=== PATIENT | male | born 1965 | race African-American/Black ===

== ENCOUNTER 2017-04-05 16:48 | Emergency (ER) | payer MEDICAID ==
[~2017-04-05] VITALS: Ht 188 cm; Wt 123.4 kg
[~2017-04-05 16:48] MED LIST: ACETAMINOPHEN500 M3 ORAL; ANUSOL HC1 SUPP RECTAL; ATARAX25 MG PO; AUGMENTIN 875-1 EAC1 ORAL; IBUPROFEN600 MG ORAL; PREDNISONE20 MG PO; ZANTAC150 MG ORAL
--- NOTE | 2017-04-05 17:15 | Emergency Room Report ---
History of Present Illness General Chief Complaint: Abdominal Pain Source: Patient Present Illness HPI Patient presents with complaints of abdominal discomfort Increased weight gain Patient feels that his umbilical hernia has also increased in size Patient reports being seen at several different facilities and reports no testing was done last seen at [facility] about 7 days ago Denies any chest pain or shortness of breath denies any back or flank pain Denies any dysuria frequency Allergies: Coded Allergies: FISH PRODUCT DERIVATIVES (Verified Allergy, Unknown, 03/17/10) Uncoded Allergies: CHOCOLATE (Allergy, Unknown, 03/17/10) FISH (Allergy, Unknown, 03/17/10) Patient History Past Medical History: see triage record Pertinent Family History: none Reviewed Nursing Documentation: PMH: Agreed, PSxH: Agreed Nursing Documentation-PMH Past Medical History: No Stated History Review of Systems All Other Systems: negative except mentioned in HPI Physical Exam Vital Signs Date Time Temp Pulse Resp B/P Pulse Ox O2 Delivery O2 Flow Rate FiO2 04/05/17 16:59 98.2 87 15 133/88 95 Room Air Sp02 EP Interpretation: reviewed, normal General Appearance: well appearing, no apparent distress Head: normocephalic, atraumatic Eyes: bilateral eye EOMI, bilateral eye PERRL ENT: hearing grossly normal, normal pharynx, TMs + canals normal, uvula midline Neck: full range of motion, supple, no meningismus, no bony tend Respiratory: lungs clear, normal breath sounds, no rhonchi, no respiratory distress, no retraction, no accessory muscle use Cardiovascular #1: normal peripheral pulses, regular rate, rhythm, no edema, no gallop, no JVD, no murmur Gastrointestinal: normal bowel sounds, no organomegaly, no guarding, no pulsatile mass, no rebound, distended - Patient has a mildly distended abdomen on palpation, umbilical hernia is easily reducible Genitourinary: no CVA tenderness Musculoskeletal: normal inspection Neurologic: oriented x3, responsive, applications engineer III-XII nml as tested, motor strength/ tone normal, sensory intact Psychiatric: mood/affect normal Skin: normal color, no rash, warm/dry, palpation normal Lymphatic: normal inspection, no adenopathy Medical Decision Making Diagnostic Impression: Primary Impression: Abdominal pain Additional Impression: Umbilical hernia ER Course With the history exam and presentation, multiple differentials considered, including but not limited to appendicitis, gastritis, cholecystitis, diverticulitis Patient's blood work and imaging does not reveal any obvious acute pathology CT imaging shows several nonspecific pathology that require close observation and followup Patient has signs of umbilical hernia which is easily reducible Patient requires close outpatient followup Labs Test 04/05/17 17:38 04/05/17 19:25 White Blood Count 5.4 K/UL (4.8-10.8) Red Blood Count 5.05 M/UL (4.70-6.10) Hemoglobin 15.7 G/DL (14.2-18.0) Hematocrit 43.5 % (42.0-52.0) Mean Corpuscular Volume 86 FL (80-99) Mean Corpuscular Hemoglobin 31.0 PG (27.0-31.0) Mean Corpuscular Hemoglobin Concent 36.0 G/DL (32.0-36.0) Red Cell Distribution Width 12.4 % (11.6-14.8) Platelet Count 220 K/UL (150-450) Mean Platelet Volume 8.4 FL (6.5-10.1) Neutrophils (%) (Auto) 52.6 % (45.0-75.0) Lymphocytes (%) (Auto) 33.2 % (20.0-45.0) Monocytes (%) (Auto) 11.1 % (1.0-10.0) Eosinophils (%) (Auto) 1.1 % (0.0-3.0) Basophils (%) (Auto) 2.1 % (0.0-2.0) Prothrombin Time 10.5 SEC (9.30-11.50) Prothromb Time International Ratio 1.0 (0.9-1.1) Activated Partial Thromboplast Time 27 SEC (23-33) Sodium Level 141 mEQ/L (135-145) Potassium Level 3.9 mEQ/L (3.4-4.9) Chloride Level 104 mEQ/L (98-107) Carbon Dioxide Level 24 mEQ/L (20-30) Anion Gap 13 (5-15) Blood Urea Nitrogen 11 mg/dL (7-23) Creatinine 1.3 mg/dL (0.7-1.2) Estimat Glomerular Filtration Rate > 60 mL/min (>60) Glucose Level 100 mg/dL (74-106) Calcium Level 9.0 mg/dL (8.6-10.2) Total Bilirubin 0.4 mg/dL (0.0-1.2) Aspartate Amino Transf (AST/SGOT) 26 U/L (5-40) Alanine Aminotransferase (ALT/SGPT) 29 U/L (3-41) Alkaline Phosphatase 59 U/L (40-129) Total Protein 7.2 g/dL (6.6-8.7) Albumin 4.0 g/dL (3.5-5.2) Globulin 3.2 g/dL Albumin/Globulin Ratio 1.2 (1.0-2.7) Lipase 31 U/L (< 60) Urine Color Yellow Urine Appearance Clear Urine pH 6 (4.5-8.0) Urine Specific [place] 1.030 (1.005-1.035) Urine Protein 2+ (NEGATIVE) Urine Glucose (UA) Negative (NEGATIVE) Urine Ketones Negative (NEGATIVE) Urine Occult Blood 4+ (NEGATIVE) Urine Nitrite Negative (NEGATIVE) Urine Bilirubin Negative (NEGATIVE) Urine Urobilinogen 1 MG/DL (0.0-1.0) Urine Leukocyte Esterase 3+ (NEGATIVE) Urine RBC 5-10 /HPF (0 - 0) Urine WBC 2-4 /HPF (0 - 0) Urine Squamous Epithelial Cells None /LPF (NONE/OCC) Urine Bacteria Few /HPF (NONE) CT/MRI/US Diagnostic Results CT/MRI/US Diagnostic Results : Impression CT abdomen pelvisImpression: Small umbilical hernia, containing the additional of a loop of small bowel. No evidence of obstruction or strangulation No acute process otherwise Equivocal minimal diverticulosis Subcentimeter low-attenuation lesions in segment TORI of the liver which are too small to characterize, most likely benign simple cysts or bile hamartomas. No further followup necessary Incidental findings as noted, including mild degenerative spondylosis changes, minimal right basilar atelectasis or scarring, small fat-containing left inguinal hernia, small sliding-type hiatal hernia Last Vital Signs Date Time Temp Pulse Resp B/P Pulse Ox O2 Delivery O2 Flow Rate FiO2 04/05/17 16:59 98.2 87 15 133/88 95 Room Air Status: improved Disposition: HOME, SELF-CARE Condition: Improved Scripts Docusate Sodium* (COLACE*) 100 Mg Capsule 100 MG ORAL THREE TIMES A DAY, #30 CAP Prov: FRANCINE WINSLOW D.O. 04/05/17 Additional Instructions: Patient is provided with the discharge instructions notified to follow up with primary doctor in the next 2-3 days otherwise return to the er with any worsening symptoms. Please note that this report is being documented using [employer] technology. This can lead to erroneous entry secondary to incorrect interpretation by the dictating instrument. FRANCINE WINSLOW D.O. April 05, 2017 17:15
[2017-04-05 17:30] VITALS: BP 173/98
[2017-04-05 18:06] LABS: ALANINE AMINOTRANSFERASE 29 U/L (3-41); ALBUMIN/GLOBULIN RATIO 1.2 (1.0-2.7); ANION GAP 13 (5-15); ASPARTATE AMINO TRANSFERASE 26 U/L (5-40); CARBON DIOXIDE 24 mEQ/L (20-30); CHLORIDE 104 mEQ/L (98-107); CREATININE 1.3 mg/dL (0.7-1.2); GLOMERULAR FILTRATION RATE > 60 mL/min (>60); HEMOLYSIS 32; LIPASE 31 U/L (< 60); POTASSIUM 3.9 mEQ/L (3.4-4.9); SODIUM 141 mEQ/L (135-145); TOTAL PROTEIN 7.2 g/dL (6.6-8.7)
[2017-04-05 18:11] LABS: BASOPHILS % (AUTO) 2.1 % (0.0-2.0); EOSINOPHILS % (AUTO) 1.1 % (0.0-3.0); LYMPHOCYTES % (AUTO) 33.2 % (20.0-45.0); MEAN CORPUSCULAR VOLUME 86 FL (80-99); MEAN PLATELET VOLUME 8.4 FL (6.5-10.1); MONOCYTES % (AUTO) 11.1 % (1.0-10.0); NEUTROPHILS % (AUTO) 52.6 % (45.0-75.0); PLATELET COUNT 220 K/UL (150-450); PROTHROMBIN TIME 10.5 SEC (9.30-11.50); RED BLOOD COUNT 5.05 M/UL (4.70-6.10); RED CELL DISTRIBUTION WIDTH 12.4 % (11.6-14.8); WHITE BLOOD COUNT 5.4 K/UL (4.8-10.8)
[2017-04-05 18:30] VITALS: BP 150/104
[2017-04-05 19:30] VITALS: BP 162/102
[2017-04-05 19:43] LABS: APPEARANCE,URINE CLEAR; KETONES,URINE NEGATIVE (NEGATIVE); NITRITE,URINE NEGATIVE (NEGATIVE); PH,URINE 6 (4.5-8.0)
[2017-04-05 19:45] LABS: LEUKOCYTE ESTERASE ,URINE 3+ (NEGATIVE); PROTEIN,URINE 2+ (NEGATIVE); UROBILINOGEN,URINE 1 MG/DL (0.0-1.0)
[2017-04-05 19:57] LABS: BACTERIA,URINE FEW /HPF
[2017-04-05] MEDS ORDERED: COLACE100 MG ORAL (20:02)
[2017-04-05 20:06] VITALS: BP 162/102
--- NOTE | 2017-04-06 09:09 | Diagnostic Imaging Report ---
Clinical Indication: Abdominal pain Technique: Patient given oral contrast. IV administration nonionic contrast. Venous phase spiral acquisition obtained through the abdomen and pelvis. Multiplanar reconstructions were generated. Total dose length product 1084 mGycm. CTDIvol(s) 18 mGy. Dose reduction achieved using automated exposure control Comparison: None Findings: The appendix is normal. There are equivocal small colonic diverticula distally. No evidence of diverticulitis. No small bowel distention. No small bowel wall thickening. There is questionably a small sliding-type hiatal hernia. The stomach, duodenum are unremarkable. No free or loculated intraperitoneal air or fluid. There is a small umbilical hernia, which contains mostly fat, but the edge of the small bowel protrudes slightly into it. This does not appear to result in the obstruction or strangulation, however. There is a small fat-containing left inguinal hernia. Contrast opacification is suboptimal. The liver demonstrates a subcentimeter low-attenuation lesions in segment TORI which are too small to characterize, most likely represent benign simple cysts or bile hamartomas. The gallbladder, bile ducts, pancreas, spleen, adrenals, kidneys are unremarkable. No mesenteric or retroperitoneal mass or adenopathy. No pelvic mass or adenopathy. The included lung bases are clear except for minimal atelectasis or scarring on the right. The bones demonstrate mild degenerative spondylosis changes. Impression: Small umbilical hernia, containing the additional of a loop of small bowel. No evidence of obstruction or strangulation No acute process otherwise Equivocal minimal diverticulosis Subcentimeter low-attenuation lesions in segment TORI of the liver which are too small to characterize, most likely benign simple cysts or bile hamartomas. No further followup necessary Incidental findings as noted, including mild degenerative spondylosis changes, minimal right basilar atelectasis or scarring, small fat-containing left inguinal hernia, small sliding-type hiatal hernia This agrees with the preliminary interpretation provided overnight by Dr. Aldana The CT scanner at [facility] is accredited by the [employer] and the scans are performed using protocols designed to limit radiation exposure to as low as reasonably achievable to attain images of sufficient resolution adequate for diagnostic evaluation.
== END 2017-04-05 20:08 | disposition home or self-care (01) ==
LOC: EMR 17:28
DX: R10.9 Unspecified abdominal pain (principal); K42.9 Umbilical hernia without obstruction or gangrene; Z91.013 Allergy to seafood; Z91.018 Allergy to other foods; K40.90 Unilateral inguinal hernia, without obstruction or gangrene, not specified as recurrent; K44.9 Diaphragmatic hernia without obstruction or gangrene; J98.11 Atelectasis; K57.90 Diverticulosis of intestine, part unspecified, without perforation or abscess without bleeding
CPT/HCPCS: 36415; 74177; 80053; 81003; 83690; 85025; 85610; 85730; 99284; Q9967

== ENCOUNTER 2017-08-14 10:52 | Emergency (ER) | payer MEDICAID ==
[~2017-08-14] VITALS: Ht 188 cm; Wt 117.9 kg
[~2017-08-14 10:52] MED LIST changes: +COLACE100 MG ORAL
[2017-08-14 11:10] VITALS: BP 161/114
[2017-08-14] MEDS ORDERED: PREDNISONE20 MG ORAL (11:20)
[2017-08-14] MEDS ORDERED: ATARAX25 MG PO (11:20)
[2017-08-14 11:45] VITALS: BP 161/114
--- NOTE | 2017-08-14 13:21 | Emergency Room Report ---
History of Present Illness General Chief Complaint: Allergic Reaction Source: Patient Present Illness HPI Patient's 52 male presented after increased skin redness. Patient gradual onset of symptoms. Patient had prior history of chronic urticaria for which he takes Atarax. Patient had no difficulty breathing. He reports having some redness diffusely throughout his body. He reports having prior history of food allergies. He denies vomiting or abdominal pain. He denies lip or tongue swelling. He reports having prior history of umbilical hernia Allergies: Coded Allergies: FISH PRODUCT DERIVATIVES (Verified Allergy, Unknown, 03/17/10) Uncoded Allergies: CHOCOLATE (Allergy, Unknown, 03/17/10) FISH (Allergy, Unknown, 03/17/10) Patient History Past Medical History: see triage record Reviewed Nursing Documentation: PMH: Agreed, PSxH: Agreed Nursing Documentation-PMH Past Medical History: No History, Except For Hx Hypertension: No - UNK CHRONIC ALLERGY Review of Systems All Other Systems: negative except mentioned in HPI Physical Exam Vital Signs Date Time Temp Pulse Resp B/P (MAP) Pulse Ox O2 Delivery O2 Flow Rate FiO2 08/14/17 10:55 98.1 84 20 185/120 96 Room Air General Appearance: well appearing, no apparent distress, alert, GCS 15, non- toxic Head: normocephalic, atraumatic ENT: hearing grossly normal, normal voice Neck: full range of motion, supple Respiratory: no respiratory distress, speaking full sentences Cardiovascular #1: normal inspection, regular rate, rhythm Gastrointestinal: normal inspection, normal bowel sounds, non tender, soft, other - ventral hernia, reducible Musculoskeletal: no calf tenderness Neurologic: normal gait Psychiatric: mood/affect normal Skin: no rash Medical Decision Making Diagnostic Impression: Primary Impression: Chronic urticaria ER Course Patient presented for skin rash. Differential diagnosis included was not limited to Hoff-Hunter syndrome, urticaria, erythema multiforme, contact dermatitis. Patient's benign exam and does not appear to require any further imaging or laboratory testing at this time The patient was given oral steroids. He is given prescription for Atarax.The patient is advised to follow up with primary care doctor in 1-2 days. Patient is advised to return if any worsening condition or if any changes in status that are concerning. Last Vital Signs Date Time Temp Pulse Resp B/P (MAP) Pulse Ox O2 Delivery O2 Flow Rate FiO2 08/14/17 11:45 97.2 83 19 161/114 98 Room Air Status: improved Disposition: HOME, SELF-CARE Condition: Improved Scripts Prednisone* (PREDNISONE*) 20 Mg Tablet 40 MG ORAL DAILY, #10 TAB Prov: Lanre Umanzor 08/14/17 Hydroxyzine HCl (Hydroxyzine HCl) 25 Mg Tab 50 MG PO QID, #30 TAB Take one tablet by mouth four times a day as needed for itching Prov: Lanre Umanzor 08/14/17 Referrals: NOT [facility]/,REFERRING (PCP) Patient Instructions: Allergies Lanre Umanzor Aug 14, 2017 13:21
== END 2017-08-14 11:45 | disposition home or self-care (01) ==
LOC: EMR 11:31
DX: L50.8 Other urticaria (principal); Z91.018 Allergy to other foods
CPT/HCPCS: 99283

== ENCOUNTER 2017-10-24 17:04 | Emergency (ER) | payer MEDICAID ==
[~2017-10-24] VITALS: Ht 185.4 cm; Wt 124.7 kg
[~2017-10-24 17:04] MED LIST changes: +PREDNISONE20 MG ORAL
[2017-10-24] MEDS ORDERED: NORCO 5-325 TA1 EACH ORAL (17:50)
--- NOTE | 2017-10-24 17:58 | Emergency Room Report ---
History of Present Illness General Chief Complaint: General Complaint Source: Patient, Medical Record Present Illness HPI 52-year-old male, history of an umbilical hernia for many years, came in for pain to his hernia. Patient states that onThursday, the hernia got very big and painful, however was able to be reduced. Patient states that he has had intermittent pain to the area, denies any fever chills nausea vomiting, his last bowel movement was today 3 times States that he once sawsurgeon many years ago Allergies: Coded Allergies: FISH PRODUCT DERIVATIVES (Verified Allergy, Unknown, 03/17/10) Uncoded Allergies: CHOCOLATE (Allergy, Unknown, 03/17/10) FISH (Allergy, Unknown, 03/17/10) Patient History Past Medical History: see triage record Past Surgical History: none Pertinent Family History: none Reviewed Nursing Documentation: PMH: Agreed, PSxH: Agreed Nursing Documentation-PMH Past Medical History: No History, Except For Hx Hypertension: No - UNK CHRONIC ALLERGY Review of Systems All Other Systems: negative except mentioned in HPI Physical Exam Vital Signs Date Time Temp Pulse Resp B/P (MAP) Pulse Ox O2 Delivery O2 Flow Rate FiO2 10/24/17 17:16 98.1 75 18 166/105 97 Room Air Sp02 EP Interpretation: reviewed, normal General Appearance: alert, GCS 15, non-toxic, mild distress Head: normocephalic, atraumatic Eyes: bilateral eye normal inspection, bilateral eye PERRL, bilateral eye EOMI ENT: normal ENT inspection, normal pharynx, normal voice, moist mucus membranes Neck: normal inspection, full range of motion, supple Respiratory: normal inspection, lungs clear, normal breath sounds, no respiratory distress, no retraction, no wheezing, speaking full sentences, chest symmetrical Cardiovascular #1: normal inspection, regular rate, rhythm, no edema, normal capillary refill Cardiovascular #2: 2+ radial (R), 2+ radial (L) Gastrointestinal: other - Abdomen is very soft, soft and reducible hernia, not strangulated, normal bowel sounds Genitourinary: no CVA tenderness Musculoskeletal: normal inspection, back normal, normal range of motion, non- tender Neurologic: normal inspection, alert, oriented x3, responsive, motor strength/ tone normal, sensory intact, normal gait, speech normal Psychiatric: normal inspection, judgement/insight normal, memory normal Skin: normal inspection, normal color, no rash, warm/dry, well hydrated, normal turgor Medical Decision Making Diagnostic Impression: Primary Impression: Umbilical hernia ER Course 52-year-old male with umbilical hernia of for many years, with umbilical hernia pain DDX: At this time patient has umbilical hernia which is completely reducible, patient is nontoxic appearing, is passing gas and bowel movement normally, not nauseous or vomiting Plan: Pain control ER course: Patient has remained stable during ED stay. Patient was very angry, stating that he wants surgery done today, I politely informed the patient that surgery is not indicated emergently at this time as hernias not strangulated, and he is not having any obstructive symptoms. Furthermore her knee is completely reducible at this time Disposition: Patient is to be discharged to home. Prescriptions given are norco Patient is instructed to follow up with outpatient surgery, , this Tuesday at 11 AM. His phone number and address was given to the patient Strict return precautions discussed with patient such as fever, chills, worsening/severe pain, unable to reduce hernia, not able to pass any gas or stool Please note that this Emergency Department Report was dictated using [employer] basic technology software, occasionally this can lead to erroneous entry secondary to interpretation by the dictation equipment Last Vital Signs Date Time Temp Pulse Resp B/P (MAP) Pulse Ox O2 Delivery O2 Flow Rate FiO2 10/24/17 17:16 98.1 75 18 166/105 97 Room Air Disposition: HOME, SELF-CARE Condition: Stable Scripts Hydrocodone Bit/Acetaminophen 5-325* (NORCO 5-325*) 1 Each Tablet 1 TAB ORAL Q6H Y for For Pain, #10 TAB 0 Refills Prov: Gordy Garay M.D. 10/24/17 Referrals: [facility] (PCP) Patient Instructions: Hernia, Adult, [id number] Additional Instructions: Please followup with the surgeon outpatient in one week You can follow up with Dr Copeland Tuesday at 11am [phone] [facility] [address] [place] [address] Please return to the emergency room if you are unable to reduce hernia, intractable nausea vomiting, absence of any bowel movement or passing of gas Gordy Garay M.D. Oct 24, 2017 17:57
[2017-10-24] MEDS ORDERED: Norco 10mg/325mg tab ORAL ONE (18:00)
[2017-10-24 18:06] VITALS: BP 166/105
== END 2017-10-24 18:06 | disposition home or self-care (01) ==
LOC: EMR 17:45
DX: K42.9 Umbilical hernia without obstruction or gangrene (principal)
CPT/HCPCS: 99283

== ENCOUNTER 2018-05-07 19:38 | Emergency (ER) | payer MEDICAID ==
[~2018-05-07] VITALS: Ht 185.4 cm; Wt 122.5 kg
[~2018-05-07 19:38] MED LIST changes: +NORCO 5-325 TA1 EACH ORAL
[2018-05-07] MEDS ORDERED: HydrOXYzine tab 25 MG TAB ORAL ONE (20:00)
--- NOTE | 2018-05-07 20:06 | Emergency Room Report ---
History of Present Illness General Chief Complaint: Allergic Reaction Source: Patient Present Illness HPI 53-year-old male with a history of an umbilical hernia as well as chronic urticaria presents with hives like reaction on his trunk, he reports he felt some mild sensation shortness of breath earlier and he thought it was secondary to having allergic reaction. He no longer feels short of breath but he does still have the hives he reports they're itchy, and he gets them all the time. He reports he's been tested for food and medication allergies, and he is still undergoing further testing. He has certain foods that trigger it, but he reports there is no triggers this time and the hives came up mainly because he' s run out of his hydroxyzine a day and a half ago. He is not on steroids, and only takes hydroxyzine regularly. He has not tried any medications for his symptoms currently, and he is not complaining of shortness of breath, abdominal pain, syncope or near syncope. Allergies: Coded Allergies: FISH PRODUCT DERIVATIVES (Verified Allergy, Unknown, 03/17/10) Uncoded Allergies: CHOCOLATE (Allergy, Unknown, 03/17/10) FISH (Allergy, Unknown, 03/17/10) Patient History Past Medical History: see triage record Reviewed Nursing Documentation: PMH: Agreed; PSxH: Agreed Nursing Documentation-PMH Past Medical History: No History, Except For Hx Hypertension: Yes Review of Systems All Other Systems: negative except mentioned in HPI Physical Exam Vital Signs Date Time Temp Pulse Resp B/P (MAP) Pulse Ox O2 Delivery O2 Flow Rate FiO2 05/07/18 19:45 97.7 80 18 161/100 94 Room Air 97.7 Sp02 EP Interpretation: reviewed, normal General Appearance: no apparent distress, alert, non-toxic Head: normocephalic Eyes: bilateral eye normal inspection, bilateral eye PERRL, bilateral eye EOMI ENT: normal ENT inspection, hearing grossly normal, normal pharynx, no angioedema, normal voice, moist mucus membranes Neck: normal inspection, full range of motion, supple, supple/symm/no masses Respiratory: normal inspection, chest non-tender, lungs clear, normal breath sounds, no respiratory distress, no wheezing, speaking full sentences, chest symmetrical, palpation of chest normal Cardiovascular #1: normal peripheral pulses, regular rate, rhythm Cardiovascular #2: 2+ radial (R), 2+ radial (L) Gastrointestinal: normal inspection, non tender, soft, no mass, no guarding, no rebound Rectal: deferred Genitourinary: normal inspection, no CVA tenderness Musculoskeletal: back normal, gait/station normal, normal range of motion, non- tender, no calf tenderness Neurologic: alert, responsive, environmental services technician III-XII nml as tested, motor strength/tone normal, sensory intact, speech normal Psychiatric: judgement/insight normal, memory normal, mood/affect normal, no suicidal/homicidal ideation Skin: normal color, warm/dry, normal turgor, rash - A few areas of hives like reaction roughly 3 cm diameter over and bilateral flank, total less than 10 in number, spares palms, spares soles, no oral involvement. Lymphatic: no adenopathy Medical Decision Making Diagnostic Impression: Primary Impression: Urticaria ER Course Patient will be given steroids here and a few days of first course, as well as an Atarax refill. He has a primary care doctor on [facility] whom he sees and the gets allergy testing with, will recommend follow-up with that doctor for further evaluation and further refills of his medications. Last Vital Signs Date Time Temp Pulse Resp B/P (MAP) Pulse Ox O2 Delivery O2 Flow Rate FiO2 05/07/18 19:45 97.7 80 18 161/100 94 Room Air 97.7 Disposition: HOME, SELF-CARE Condition: Stable Referrals: [facility] (PCP) JANKI DÍAZ M.D May 07, 2018 20:06
[2018-05-07] MEDS ORDERED: ATARAX25 MG ORAL (20:08)
[2018-05-07] MEDS ORDERED: PREDNISONE20 MG ORAL (20:08)
[2018-05-07 20:38] VITALS: BP 161/100
== END 2018-05-07 20:40 | disposition home or self-care (01) ==
LOC: EMR 19:58
DX: L50.9 Urticaria, unspecified (principal); I10 Essential (primary) hypertension; Z91.018 Allergy to other foods
CPT/HCPCS: 99283; J7512

== ENCOUNTER 2020-05-18 13:35 | Emergency (ER) | payer MEDICAID ==
[~2020-05-18] VITALS: Ht 188 cm; Wt 122.5 kg
[~2020-05-18 13:35] MED LIST changes: +ATARAX25 MG ORAL
[2020-05-18] MEDS ORDERED: Omnipaque-300 100ml vial INJ PRN (14:00)
[2020-05-18] MEDS ORDERED: Morphine Sulfate 2mg/ml Inj(IV/IM USE ONLY) IVP ONE (14:00)
[2020-05-18 14:16] LABS: BASOPHILS % (AUTO) 0.6 % (0.0-2.0); EOSINOPHILS % (AUTO) 4.4 % (0.0-3.0); HEMATOCRIT 50.5 % (42.0-52.0); HEMOGLOBIN 16.5 G/DL (14.2-18.0); LYMPHOCYTES % (AUTO) 33.7 % (20.0-45.0); MEAN CORPUSCULAR VOLUME 92 FL (80-99); MONOCYTES % (AUTO) 10.7 % (1.0-10.0); NEUTROPHILS % (AUTO) 50.7 % (45.0-75.0); PLATELET COUNT 268 K/UL (150-450); RED BLOOD COUNT 5.52 M/UL (4.70-6.10); RED CELL DISTRIBUTION WIDTH 12.4 % (11.6-14.8)
[2020-05-18 14:21] VITALS: BP 147/71
[2020-05-18 14:29] LABS: ANION GAP 10 mmol/L (5-15); BLOOD UREA NITROGEN 14 mg/dL (7-18); CALCIUM 8.6 MG/DL (8.5-10.1); CARBON DIOXIDE 27 MMOL/L (21-32); CHLORIDE 104 MMOL/L (98-107); CREATININE 1.5 MG/DL (0.55-1.30); POTASSIUM 3.3 MMOL/L (3.5-5.1); SODIUM 141 MMOL/L (136-145)
[2020-05-18 14:33] LABS: ALANINE AMINOTRANSFERASE 27 U/L (12-78); ALBUMIN 3.6 G/DL (3.4-5.0); ALBUMIN/GLOBULIN RATIO 1.1 (1.0-2.7); ALKALINE PHOSPHATASE 81 U/L (46-116); ASPARTATE AMINO TRANSFERASE 22 U/L (15-37); BILIRUBIN,TOTAL 0.4 MG/DL (0.2-1.0)
[2020-05-18 15:31] LABS: APPEARANCE,URINE CLEAR; BILIRUBIN, URINE NEGATIVE (NEGATIVE); GLUCOSE, URINE (UA) NEGATIVE (NEGATIVE); KETONES,URINE 1+ (NEGATIVE); LEUKOCYTE ESTERASE ,URINE 1+ (NEGATIVE); NITRITE,URINE NEGATIVE (NEGATIVE); PH,URINE 5 (4.5-8.0); PROTEIN,URINE NEGATIVE (NEGATIVE); UROBILINOGEN,URINE 4 MG/DL (0.0-1.0)
[2020-05-18 15:40] LABS: COLOR,URINE YELLOW
--- NOTE | 2020-05-18 16:01 | Diagnostic Imaging Report ---
EXAM: CT Abdomen and Pelvis Without Intravenous Contrast CLINICAL HISTORY: PAIN TECHNIQUE: Axial computed tomography images of the abdomen and pelvis without intravenous contrast. CTDI is 14.7 mGy and DLP is 799.8 mGy-cm. One or more of the following dose reduction techniques were used: automated exposure control, adjustment of the mA and/or kV according to patient size, use of iterative reconstruction technique. COMPARISON: CT abdomen/pelvis on 04/05/2017 FINDINGS: Lung bases: Mild bibasilar atelectasis. Punctate calcified granuloma in the right middle lobe. Heart: Mild cardiomegaly. Mediastinum: Small hiatal hernia. ABDOMEN: Liver: Small hypodensities in the liver are too small to definitively characterize. Gallbladder and bile ducts: Contracted gallbladder. No calcified stones. No ductal dilation. Pancreas: Unremarkable. No ductal dilation. Spleen: Splenule. Adrenals: Unremarkable. No mass. Kidneys and ureters: Unremarkable. No obstructing stones. No hydronephrosis. Stomach and bowel: Moderate ventral hernia containing small amount of fluid and bowel. No definite bowel obstruction. Mild prominence of the wall of the herniated small bowel is nonspecific. Evaluation of the stomach is limited by underdistention. Diverticulosis without evidence of diverticulitis. PELVIS: Appendix: Normal appendix. Bladder: Bladder wall thickening may be at least in part accentuated by underdistention. Please correlate with urinalysis to evaluate for cystitis. No stones. Reproductive: Unremarkable as visualized. ABDOMEN and PELVIS: Intraperitoneal space: Unremarkable. No free air. No significant fluid collection. Bones/joints: Mild degenerative changes of the spine. No acute fracture. No dislocation. Soft tissues: Fat-containing bilateral inguinal hernias. Vasculature: Mild atherosclerotic changes of the vasculature. No aortic aneurysm. Lymph nodes: Unremarkable. No enlarged lymph nodes. IMPRESSION: 1. Moderate ventral hernia containing small amount of fluid and bowel. No definite bowel obstruction. Mild prominence of the wall of the herniated small bowel is nonspecific. Strangulation changes or enteritis not excluded. 2. Bladder wall thickening may be at least in part accentuated by underdistention. Please correlate with urinalysis to evaluate for cystitis.
--- NOTE | 2020-05-18 16:09 | Emergency Room Report ---
History of Present Illness General Chief Complaint: Abdominal Pain Source: Patient (Trino Luna) Present Illness HPI 55-year-old male with history of ventral hernia repair x3 years here complaining of worsening abdominal pain at the site of ventral hernia repair x3 days. Patient reports that at work he often lifts heavy objects. Denies any pain radiation to the scrotum. Rates the pain 5 out of 10 without radiation. Denies tingling or numbness. Denies headache and dizziness. Denies chest pain shortness of breath, diffuse abdominal pain. Complains of nausea however denies any vomiting at this time. Denies all drug use. Marijuana use. Reports that he occasionally drinks alcohol. Denies tobacco smoke. Denies urinary symptoms at this time. Has not taken medication for symptom relief. 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 (Trino Luna) Patient History Past Medical History: see triage record Past Surgical History: none Pertinent Family History: none Immunizations: UTD Reviewed Nursing Documentation: PMH: Agreed; PSxH: Agreed (Trino Luna) Nursing Documentation-PMH Past Medical History: No History, Except For Hx Hypertension: Yes (Trino Luna) Review of Systems All Other Systems: negative except mentioned in HPI (Trino Luna) Physical Exam Vital Signs Date Time Temp Pulse Resp B/P (MAP) Pulse Ox O2 Delivery O2 Flow Rate FiO2 05/18/20 13:38 99.1 79 17 147/71 (96) 97 Room Air Sp02 EP Interpretation: reviewed, normal General Appearance: no apparent distress, alert, GCS 15, non-toxic Head: normocephalic, atraumatic Eyes: bilateral eye normal inspection, bilateral eye PERRL ENT: hearing grossly normal, normal pharynx, no angioedema, normal voice Neck: full range of motion, supple, supple/symm/no masses Respiratory: chest non-tender, lungs clear, normal breath sounds, no rhonchi, no respiratory distress, no retraction, no wheezing, speaking full sentences Cardiovascular #1: regular rate, rhythm, no edema, no murmur Gastrointestinal: non tender, soft, no mass, no organomegaly, no peritonitis, no bruit, non-distended, no guarding, no pulsatile mass, no rebound Rectal: deferred Musculoskeletal: back normal Neurologic: alert, motor strength/tone normal, oriented x3, sensory intact, responsive, speech normal Psychiatric: judgement/insight normal, memory normal, mood/affect normal, no suicidal/homicidal ideation Skin: no rash Lymphatic: no adenopathy (Trino Luna) Medical Decision Making PA Attestation All diagnoses and treatment plans were reviewed and discussed with my supervising physician Dr. Ham (Trino Luna) Diagnostic Impression: Primary Impression: Ventral hernia Additional Impressions: Cystitis Cocaine abuse ER Course 55-year-old male with history of ventral hernia repair x3 years here complaining of worsening abdominal pain at the site of ventral hernia repair x3 days. Patient reports that at work he often lifts heavy objects. Denies any pain radiation to the scrotum. Rates the pain 5 out of 10 without radiation. Denies tingling or numbness. Denies headache and dizziness. Denies chest pain shortness of breath, diffuse abdominal pain. Complains of nausea however denies any vomiting at this time. Denies all drug use. Marijuana use. Reports that he occasionally drinks alcohol. Denies tobacco smoke. Denies urinary symptoms at this time. Has not taken medication for symptom relief. Ddx considered but are not limited to: appendicitis, cholecystitis, gastritis, gastroenteritis, UTI, pyelonephritis, SBO, diverticulitis, influenza with GI manifestation, AR, strangulated hernia, obstructive hernia, nonobstructive hernia Vital signs: are WNL, pt. is afebrile H&PE are most consistent with: Nonobstructive None strangulated ventral hernia, cocaine abuse, cystitis ORDERS: abdominal CT, abdominal pain set, EKG, Zofran, Tylenol, Keflex ED INTERVENTIONS: Morphine, NS bolus, Zofran, Pepcid DISCHARGE: At this time pt. is stable for d/c to home. Will provide printed patient care instructions, and any necessary prescriptions. Care plan and follow up instructions have been discussed with the patient prior to discharge. Patient take medication as directed, follow primary care provider for referral to general surgeon. At this time due to no strangulation nonobstructive nature of the hernia needed no surgical patient to avoid lifting heavy objects. If worsening symptoms return to the emergency room. Patient was also advised not to use cocaine. (Trino Luna) EKG Diagnostic Results Rate: normal Rhythm: NSR ST Segments: no acute changes Other Impression No acute ST changes (Trino Luna) Rhythm Strip Diag. Results EP Interpretation: yes Rhythm: NSR, no PVC's, no ectopy (Sarmad Ham MD) CT/MRI/US Diagnostic Results CT/MRI/US Diagnostic Results : Imaging Test Ordered: CT abdomen pelvis no contrast Impression FINDINGS: Lung bases: Mild bibasilar atelectasis. Punctate calcified granuloma in the right middle lobe. Heart: Mild cardiomegaly. Mediastinum: Small hiatal hernia. ABDOMEN: Liver: Small hypodensities in the liver are too small to definitively characterize. Gallbladder and bile ducts: Contracted gallbladder. No calcified stones. No ductal dilation. Pancreas: Unremarkable. No ductal dilation. Spleen: Splenule. Adrenals: Unremarkable. No mass. Kidneys and ureters: Unremarkable. No obstructing stones. No hydronephrosis. Stomach and bowel: Moderate ventral hernia containing small amount of fluid and bowel. No definite bowel obstruction. Mild prominence of the wall of the herniated small bowel is nonspecific. Evaluation of the stomach is limited by underdistention. Diverticulosis without evidence of diverticulitis. PELVIS: Appendix: Normal appendix. Bladder: Bladder wall thickening may be at least in part accentuated by underdistention. Please correlate with urinalysis to evaluate for cystitis. No stones. Reproductive: Unremarkable as visualized. ABDOMEN and PELVIS: Intraperitoneal space: Unremarkable. No free air. No significant fluid collection. Bones/joints: Mild degenerative changes of the spine. No acute fracture. No dislocation. Soft tissues: Fat-containing bilateral inguinal hernias. Vasculature: Mild atherosclerotic changes of the vasculature. No aortic aneurysm. Lymph nodes: Unremarkable. No enlarged lymph nodes. IMPRESSION: 1. Moderate ventral hernia containing small amount of fluid and bowel. No definite bowel obstruction. Mild prominence of the wall of the herniated small bowel is nonspecific. Strangulation changes or enteritis not excluded. 2. Bladder wall thickening may be at least in part accentuated by underdistention. Please correlate with urinalysis to evaluate for cystitis. (Trino Luna) Last Vital Signs Date Time Temp Pulse Resp B/P (MAP) Pulse Ox O2 Delivery O2 Flow Rate FiO2 05/18/20 14:21 99.1 17 147/71 97 Room Air 05/18/20 14:21 79 (Trino Luna) Disposition: HOME, SELF-CARE Condition: Stable Scripts Cephalexin* (KEFLEX*) 500 Mg Capsule 500 MG ORAL EVERY 12 HOURS for 7 Days, #14 CAP 0 Refills Prov: Trino Luna 05/18/20 Acetaminophen* (TYLENOL EXTRA STRENGTH*) 500 Mg Tablet 500 MG ORAL Q8H PRN for Prn Headache/Temp > 101, #30 TAB 0 Refills Prov: Trino Luna 05/18/20 Ondansetron (Zofran) 4 Mg Tablet 4 MG ORAL Q6H PRN for Nausea & Vomiting, #14 TAB Prov: Trino Luna 05/18/20 Referrals: [facility],REFERRING (PCP) Patient Instructions: Abdominal Pain, Adult, Urinary Tract Infection, Ventral Hernia Additional Instructions: Take medication as directed, follow-up with your primary care provider for referral to general surgeon, if worsening symptoms return to the emergency room. Avoid using cocaine. Avoid lifting heavy objects. Trino Luna May 18, 2020 16:09 Sarmad Ham MD May 20, 2020 20:29
[2020-05-18] MEDS ORDERED: TYLENOL EXTRA500 MG ORAL (16:11)
[2020-05-18] MEDS ORDERED: ZOFRAN4 M1 ORAL (16:11)
[2020-05-18] MEDS ORDERED: CEPHALEXIN500 MG ORAL (16:11)
[2020-05-18 16:23] VITALS: BP 145/70
== END 2020-05-18 16:23 | disposition home or self-care (01) ==
LOC: EMR 13:50
DX: K43.9 Ventral hernia without obstruction or gangrene (principal); N30.90 Cystitis, unspecified without hematuria; F14.10 Cocaine abuse, uncomplicated; I10 Essential (primary) hypertension; F12.90 Cannabis use, unspecified, uncomplicated; K44.9 Diaphragmatic hernia without obstruction or gangrene; I51.7 Cardiomegaly
CPT/HCPCS: 36415; 74176; 80053; 80307; 81003; 83690; 84484; 85025; 85610; 85730; 86850; 86900; 86901; 93005; 96361; 96374; 96375; G0480; J2270; J2405; J7030; S0028; Z7502; 99284

== ENCOUNTER 2020-10-16 11:50 | Emergency (ER) | payer MEDICAID ==
[~2020-10-16] VITALS: Ht 185.4 cm; Wt 124.7 kg
[~2020-10-16 11:50] MED LIST changes: +CEPHALEXIN500 MG ORAL; +TYLENOL EXTRA500 MG ORAL; +ZOFRAN4 M1 ORAL
[2020-10-16 12:05] VITALS: BP 139/86
[2020-10-16] MEDS ORDERED: Omnipaque-300 100ml vial INJ PRN (12:30)
--- NOTE | 2020-10-16 13:16 | Emergency Room Report ---
History of Present Illness General Chief Complaint: Abdominal Pain Source: Patient Present Illness HPI 55-year-old male with history of ventral hernia status post ventral hernia repair with mesh approximately 2 years ago here with abdominal pain. Patient says that over the past several days to weeks he has noticed protrusion in his navel where he had had the hernia repair. Says he has had this several times but over the past several days it has gotten acutely worse especially at night. He says also "now there is fluid in there." Says that he called his surgeon who instructed him to come to the emergency department for a CAT scan. Pain is 2 out of 10 in intensity right now. He has not take any medication for the pain. Denies headache, vision changes, fevers, chills, chest pain, shortness of breath, back pain, other abdominal pain, nausea, vomiting, diarrhea, dysuria, skin changes. Allergies: Coded Allergies: FISH PRODUCT DERIVATIVES (Verified Allergy, Unknown, 03/17/10) Uncoded Allergies: CHOCOLATE (Allergy, Unknown, 03/17/10) FISH (Allergy, Unknown, 03/17/10) COVID-19 Screening Contact w/high risk pt: No Experienced COVID-19 symptoms?: No COVID-19 Testing performed FAMILY ADVOCATE: No Nursing Documentation-PMH Past Medical History: No History, Except For Hx Hypertension: Yes Review of Systems All Other Systems: negative except mentioned in HPI Physical Exam Vital Signs Date Time Temp Pulse Resp B/P (MAP) Pulse Ox O2 Delivery O2 Flow Rate FiO2 10/16/20 12:02 98.2 83 20 139/86 (103) 93 Room Air Sp02 EP Interpretation: reviewed, normal General Appearance: no apparent distress, alert, non-toxic Head: normocephalic, atraumatic Eyes: bilateral eye normal inspection, bilateral eye PERRL ENT: hearing grossly normal, normal pharynx, no angioedema, normal voice Neck: full range of motion, supple/symm/no masses Respiratory: chest non-tender, lungs clear, normal breath sounds, speaking full sentences Cardiovascular #1: regular rate, rhythm, no edema Cardiovascular #2: 2+ carotid (R), 2+ carotid (L), 2+ radial (R), 2+ radial (L), 2+ dorsalis pedis (R), 2+ dorsalis pedis (L) Gastrointestinal: normal bowel sounds, soft, non-distended, no guarding, no rebound, other - Small reducible ventral hernia without any overlying skin changes Rectal: deferred Genitourinary: normal inspection, no CVA tenderness Musculoskeletal: back normal, normal range of motion, gait/station normal, non- tender Neurologic: alert, motor strength/tone normal, oriented x3, sensory intact, responsive, speech normal Psychiatric: judgement/insight normal, memory normal, mood/affect normal, no suicidal/homicidal ideation Lymphatic: no adenopathy Medical Decision Making Diagnostic Impression: Primary Impression: Umbilical hernia ER Course 55-year-old male with billable hernia here with protruding hernia and abdominal pain. Patient was hemodynamically stable in the emergency department. He had no rebound or guarding on his physical examination no overlying skin changes. He did have a small umbilical hernia that was easily reducible. Patient was concerned because "it feels like there is fluid in there." Currently waiting results of labs and CT as requested by the patient's surgeon. Signed out to oncoming physician. Last Vital Signs Date Time Temp Pulse Resp B/P (MAP) Pulse Ox O2 Delivery O2 Flow Rate FiO2 10/16/20 12:05 83 20 Room Air 10/16/20 12:05 98.2 139/86 93 Referrals: [facility],REFERRING (PCP) Ankur Hernandes M.D. Oct 16, 2020 13:16
[2020-10-16 13:57] LABS: BASOPHILS % (AUTO) 1.1 % (0.0-2.0); EOSINOPHILS % (AUTO) 3.9 % (0.0-3.0); HEMATOCRIT 48.8 % (42.0-52.0); HEMOGLOBIN 16.5 G/DL (14.2-18.0); LYMPHOCYTES % (AUTO) 36.4 % (20.0-45.0); MEAN CORPUSCULAR VOLUME 90 FL (80-99); MONOCYTES % (AUTO) 12.2 % (1.0-10.0); NEUTROPHILS % (AUTO) 46.3 % (45.0-75.0); PLATELET COUNT 244 K/UL (150-450); RED BLOOD COUNT 5.43 M/UL (4.70-6.10); RED CELL DISTRIBUTION WIDTH 12.6 % (11.6-14.8); WHITE BLOOD COUNT 4.7 K/UL (4.8-10.8)
[2020-10-16 13:58] LABS: APPEARANCE,URINE CLEAR; BILIRUBIN, URINE NEGATIVE (NEGATIVE); GLUCOSE, URINE (UA) NEGATIVE (NEGATIVE); KETONES,URINE NEGATIVE (NEGATIVE); LEUKOCYTE ESTERASE ,URINE 1+ (NEGATIVE); NITRITE,URINE NEGATIVE (NEGATIVE); PH,URINE 7 (4.5-8.0); PROTEIN,URINE NEGATIVE (NEGATIVE); UROBILINOGEN,URINE 1 MG/DL (0.0-1.0)
[2020-10-16 14:01] LABS: COLOR,URINE YELLOW
[2020-10-16 14:03] LABS: CALCIUM 8.6 MG/DL (8.5-10.1); CREATININE 1.5 MG/DL (0.55-1.30); POTASSIUM 3.8 MMOL/L (3.5-5.1)
[2020-10-16 14:08] LABS: ALBUMIN 3.6 G/DL (3.4-5.0); BILIRUBIN,TOTAL 0.5 MG/DL (0.2-1.0)
--- NOTE | 2020-10-16 15:05 | Diagnostic Imaging Report ---
CT ABDOMEN AND PELVIS WITH CONTRAST INDICATION: Abdominal pain TECHNIQUE: Continuous helical transaxial imaging of the abdomen and pelvis was obtained from the lung bases to the pubic symphysis during intravenous contrast administration. Coronal 2-D reformats were also obtained. Study obtained in a Siemens sensation [address] Automatic Exposure Control was utilized. Total Dose length Product (DLP): 1005.[address] Dose Index Volume (CTDIvol): 17.7 mGy COMPARISON: CT abdomen and pelvis dated 05/18/2020 FINDINGS: Lower chest:: Calcified right middle lobe granuloma is again noted. Bibasilar and right middle lobe subsegmental atelectasis. Small hiatal hernia. Hepatobiliary:: Unchanged subcentimeter hepatic hypodensities, too small to characterize accurately on this examination. Genitourinary:: No hydronephrosis or nephrolithiasis. Mild prostatomegaly. Urinary bladder demonstrates mild concentric wall thickening and reticulation, presumably secondary to chronic bilateral obstruction. Adrenals:: Unremarkable Pancreas:: Unremarkable. Gastrointestinal:: Appendix is normal. No evidence of obstruction. Scattered colonic diverticulosis without evidence of acute diverticulitis. Spleen: : Unremarkable Peritoneum:: Again demonstrated is a moderate infra umbilical hernia containing nonobstructive loops of bowel. Bones and soft tissues:: There are multilevel discogenic degenerative changes of the visualized spine. IMPRESSION: No significant change in appearance of moderate infraumbilical ventral hernia containing nonobstructive loops of bowel and compared to examination dated 05/18/2020. The CT scanner at [facility] is accredited by the [employer] and the scans are performed using protocols designed to limit radiation exposure to as low as reasonably achievable to attain images of sufficient resolution adequate for diagnostic evaluation.
[2020-10-16] MEDS ORDERED: COLACE100 MG ORAL (15:23)
[2020-10-16 15:30] VITALS: BP 137/84
== END 2020-10-16 15:30 | disposition home or self-care (01) ==
LOC: EMR 12:44
DX: K42.9 Umbilical hernia without obstruction or gangrene (principal); I10 Essential (primary) hypertension; Z91.013 Allergy to seafood; Z91.018 Allergy to other foods
CPT/HCPCS: 36415; 74177; 80053; 81003; 83690; 85025; Q9965; Z7502; 99284